=== PATIENT | male | born 1945 | race Two or more races ===

== ENCOUNTER 2023-06-17 12:24 | Outpatient (CLI) | payer OTHER ==
[~2023-06-17 12:24] MED LIST: ALLERGY RELIE15.8 ML NS; BIOTINEX; BRIMONIDINE TART5 ML OP; BUSPIRONE HCL15 MG PO; BUSPIRONE HCL5 MG PO; DIAZEPAM5 MG; ESCITAL PO; GABAPENTIN300 M2; GABAPENTIN300 M2 PO; MELATONIN10 M5 PO; MIRALAX17 GM PO; MIRTAZAPINE45 MG; NABUMETONE750 MG PO; NORFLEX PO; PEPCID AC10 MG; PROAIR RESPICL90 MCG IH; PROSCAR5 MG; RAPAFLO8 MG; SILDENAFIL PO; SINUS RINSE ST1 EACH NASAL; TAMS0.4C PO; TRAZODONE HCL150 MG; TRAZODONE HCL50 MG PO; TYLENOL ARTHRI650 MG PO; ULTRAM50 MG PO; ZITHROMAX500 MG PO; [UNRECOGNIZED DRUG - OTHER] PO
== END 2023-06-17 12:28 | disposition home or self-care (01) ==
LOC: MRI 12:24 → RAD 12:24
PROVIDERS: ATTEND Physical Medicine & Rehabilitation
DX: M25.511 Pain in right shoulder (principal); M75.101 Unspecified rotator cuff tear or rupture of right shoulder, not specified as traumatic
CPT/HCPCS: 73221

== ENCOUNTER 2023-07-02 10:00 | Outpatient (CLI) | payer OTHER | END 2023-07-02 15:51 | disposition home or self-care (01) | LOC: TOM 10:00 | DX: J43.2 Centrilobular emphysema (principal); R91.1 Solitary pulmonary nodule ==

== ENCOUNTER 2024-01-01 09:51 | Outpatient (CLI) | payer OTHER | END 2024-01-01 10:04 | disposition home or self-care (01) | LOC: RAD 09:51 | PROVIDERS: ATTEND Physical Medicine & Rehabilitation | DX: M16.11 Unilateral primary osteoarthritis, right hip (principal); M25.552 Pain in left hip; M25.551 Pain in right hip ==

== ENCOUNTER 2025-01-05 08:38 | Outpatient (CLI) | payer OTHER, BC ==
[2025-01-05 10:28] LABS: CREATININE SERUM 0.82 mg/dL (0.70-1.30)
== END 2025-01-05 08:49 | disposition home or self-care (01) ==
LOC: LAB 08:38
PROVIDERS: ATTEND Radiology Diagnostic Radiology
DX: R04.2 Hemoptysis (principal)